=== PATIENT | female | born 1995 ===

== ENCOUNTER 2018-02-08 13:20 | Emergency (ER) | payer MEDICAID, SELFPAY ==
[2018-02-08 14:20] VITALS: BMI 28.5
[2018-02-08 15:20] LABS: SQUAMOUS EPITHIAL < 1 /hpf (0-5); URINE BILIRUBIN NEGATIVE (NEGATIVE); URINE BLOOD NEGATIVE (NEGATIVE); URINE CLARITY CLEAR (Clear); URINE COLOR COLORLESS (YELLOW); URINE GLUCOSE (UA) NEG (Normal); URINE LEUKOCYTE ESTERASE NEG Leu/uL (Negative); URINE PROTEIN NEGATIVE (NEGATIVE); URINE UROBILINOGEN 0.2-1.0 mg/dL (0.2-1.0)
--- NOTE | 2018-02-08 15:41 | OBHP ---
Datetime: 02/08/2018 14:43 IP Adm Impression: Term, intrauterine IP Admit Plan: Observation/Evaluation; Discharge home Admit Comment, IP Provider: 22 yo at 39+ 1 wks by LMP, c/w 15+ wk u/s, p/w noticing blood w/ wiping after urination at 11 am, denies ctxns, LOF and reports movement. Pt receives care w/ [facility]. 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 Extremities - PN: Normal Abdomen - PN: Normal Back - PN: Normal Lungs - PN: Normal Heart - PN: Normal Neurologic - PN: Normal HEENT - PN: Normal General - PN: Normal FHR - Baseline A Provider: 140's Membranes, Provider: Intact Contraction Comments Provider: None Comments, ACOG Physical Exam: Speculum: small thin blod clot in mucus seen against the cervix EGA AdmitDate IP: 39.1 Vital Signs Provider: Reviewed IP Chief Complaint: Vaginal bleeding NICHD Variability Prov Fetus A: Moderate 6-25bpm NICHD Accel Fetus A IP Provider: 15X15 FHR Category Provider Fetus A: Category I NICHD Decel Fetus A IP Provider: None Dilatation, Provider: 1 Effacement, Provider: 50 Station, Provider: -2 Genitourinary Exam: Normal
--- NOTE | 2018-02-08 15:41 | OBDCSUM ---
Datetime: 02/08/2018 15:39 Discharged to, Provider: Home Follow up at, Provider: [facility] Disch Instr Activity: Normal activity Disch Instr Diet: Regular Discharge Instructions, Provider: Routine instructions given Discharge Diagnosis, Provider: Antepartum Bleeding Discharge Time: 02/08/2018 15:39 Follow up in weeks, Provider: , 02/10/2018
[2018-02-08 20:11] VITALS: BP 101/60; PULSE 60; RESP 18; TEMP 97.8; O2SAT 97
== END 2018-02-08 15:40 | disposition home or self-care (01) ==
LOC: H.EROB2 13:20
DX: O26.853 Spotting complicating pregnancy, third trimester (principal); Z3A.39 39 weeks gestation of pregnancy; O47.1 False labor at or after 37 completed weeks of gestation

== ENCOUNTER 2018-02-09 01:50 | Inpatient (IN) | payer MEDICAID, SELFPAY ==
[2018-02-08 14:20] VITALS: BMI 28.5
[2018-02-09] MEDS ORDERED: Oxytocin 30 units/LR 500ML 30 UNITS/500 ML BAG IV ONE (02:44)
[2018-02-09] MEDS ORDERED: Lactated Ringer's 1,000 ML IV SCH (02:45)
[2018-02-09 03:16] LABS: BASO % 0.5 % (0.0-2.0); EOS # 0.1 K/uL (0.0-0.7); EOS % 0.9 % (0.0-4.0); HEMOGLOBIN 11.3 g/dL (12.0-16.0); LYMPH % 26.8 % (20.0-40.0); MEAN CELL VOLUME 84.6 fl (81.0-99.0); MEAN CORPUSCULAR HEMOGLOBIN 27.9 pg (27.0-31.0); MEAN CORPUSCULAR HGB CONC 32.9 g/dL (33.0-37.0); MEAN PLATELET VOLUME 11.5 fl (7.2-11.7); MONO # 0.6 K/uL (0.0-0.8); MONO % 7.9 % (0.0-10.0); NEUT # 4.9 K/uL (1.8-7.0); NEUT % 63.9 % (50.0-75.0); RBC 4.05 Mil/uL (3.80-5.20); WHITE BLOOD COUNT 7.6 K/uL (4.8-10.8)
[2018-02-09] MEDS ORDERED: LIDOCAINE 2% 10ML 20 MG/ML VIAL IJ PRN (03:20)
--- NOTE | 2018-02-09 04:10 | OBHP ---
Datetime: 02/09/2018 02:35 IP Adm Impression: Term, intrauterine IP Admit Plan: Admit to unit; Initiate labor protocol Admit Comment, IP Provider: 22 yo with IUP at 39+2 weeks gestational age by LMP consistent w ith 15 week u/s presented to [facility] with painful contractions q5 min that started at 6 pm, rates pain 9 /10. Denies loss of fluid, vaginal bleeding. Reports good movement. ROS: denies headache, dizziness, chest pain, shortness of breath, nausea, vomiting, diarrhea, pain /burning w/ urination. care: [facility]; Dr. Don. OBhx: 1 prior NVD 2014, full term at 40 weeks PMHx: no medical problems Past Surg hx: none Social hx: denies tobacco, alcohol, illicit drug use Fam hx: noncontributory Meds: PNVs and iron Allergies: NKDA PE: FHR 140s, reactive SVE: 6cm, 100%, -2 Gen: awake, alert CV: RRR Resp: normal effort Abd: gravid Ext: no edema A/P 22 yo at 39+ weeks; in active labor Admit to labor and delivery unit, expectant management Pt seen/examined w/ Dr. Barroso. [email or web address] Extremities - PN: Normal Abdomen - PN: Normal Back - PN: Normal Lungs - PN: Normal Heart - PN: Normal Neurologic - PN: Normal HEENT - PN: Normal General - PN: Normal FHR - Baseline A Provider: 140 Comments, ACOG Physical Exam: SVE: 6cm, 100%, -2 IP Hx Assessment: The History has been Reviewed and is Current EGA AdmitDate IP: 39.2 IP Indication for Induction: Not Applicable IP Chief Complaint: Uterine contractions NICHD Variability Prov Fetus A: Minimal - Undetectable to <5bpm NICHD Accel Fetus A IP Provider: 15X15 FHR Category Provider Fetus A: Category I NICHD Decel Fetus A IP Provider: None Dilatation, Provider: 6 Effacement, Provider: 100 Station, Provider: -2 Genitourinary Exam: Normal
--- NOTE | 2018-02-09 04:13 | OBADHP ---
Datetime: 02/09/2018 02:35 Admit Comment, IP Provider: 22 yo with IUP at 39+2 weeks gestational age by LMP consistent w ith 15 week u/s presented to [facility] with painful contractions q5 min that started at 6 pm, rates pain 9 /10. Denies loss of fluid, vaginal bleeding. Reports good movement. ROS: denies headache, dizziness, chest pain, shortness of breath, nausea, vomiting, diarrhea, pain /burning w/ urination. care: [facility]; Dr. Don. OBhx: 1 prior NVD 2014, full term at 40 weeks PMHx: no medical problems Past Surg hx: none Social hx: denies tobacco, alcohol, illicit drug use Fam hx: noncontributory Meds: PNVs and iron Allergies: NKDA PE: FHR 140s, reactive SVE: 6cm, 100%, -2 Gen: awake, alert CV: RRR Resp: normal effort Abd: gravid Ext: no edema A/P 22 yo at 39+ weeks; in active labor Admit to labor and delivery unit, expectant management Pt seen/examined w/ Dr. Barroso. [email or web address] OB Hospitalist Addendum: Pt seen and examined by me. Agree w/ above. 22 yo at 39+2 wks r eports more frequent and painful ctxns, admitted in labor. NST reactive. GBS negative. (ES) Extremities - PN: Normal Abdomen - PN: Normal Back - PN: Normal Lungs - PN: Normal Heart - PN: Normal Neurologic - PN: Normal HEENT - PN: Normal General - PN: Normal FHR - Baseline A Provider: 140 Comments, ACOG Physical Exam: SVE: 6cm, 100%, -2 IP Hx Assessment: The History has been Reviewed and is Current IP Chief Complaint: Uterine contractions NICHD Variability Prov Fetus A: Minimal - Undetectable to <5bpm NICHD Accel Fetus A IP Provider: 15X15 FHR Category Provider Fetus A: Category I NICHD Decel Fetus A IP Provider: None Dilatation, Provider: 6 Effacement, Provider: 100 Station, Provider: -2 Genitourinary Exam: Normal EGA AdmitDate IP: 39.2 IP Adm Impression: Term, intrauterine IP Admit Plan: Admit to unit; Initiate labor protocol Datetime: 02/08/2018 14:43 Membranes, Provider: Intact Contraction Comments Provider: None Vital Signs Provider: Reviewed
[2018-02-09] MEDS ORDERED: Oxycodone/Acetaminophen 5/325 mg Tab PO PRN ×2 (06:33→10:42)
[2018-02-09] MEDS ORDERED: Benzocaine/Menthol SPRAY TOP PRN (06:33)
--- NOTE | 2018-02-09 06:56 | OBDS ---
DELIVERY PERSONNEL Delivery Doctor: Maya Barroso MD (Annotations: Data stored by [facility] on behalf of user) Battery Loader: Joseph Ayala RN Resident: Jaleel Cavazos MD MATERNAL INFORMATION Delivery Anesthesia: None Medications in Delivery: oxytocin 30 units/500cc LR, 2% Lidocaine Estimated Blood Loss (ml): 200 Placenta Cultured: No Maternal Complications: None Provider Comments: Pt progressed to complete and pushed to deliver a viable male through nathaniel r fluid at 06:23 am. Apgars 9 and 9. Wt 7#6, 3355gms. Infant placed on mother's abdomen. Mouth an d nares bulb-suctioned. Cord doubly clamped and FOB cut the cord. Placenta delivered spontaneously intact w/ a 3vc at 06:26 am. Small second degree tear repaired w/ 2-0 rapide and 3-[address] Pt and baby tolerated procedure well. EBL 200 mL LABOR SUMMARY EDC: 02/14/2018 00:00 No. Babies in Womb: 1 Attempted: No Labor Anesthesia: None LABOR INFORMATION Reason for Induction: Not Applicable Onset of Labor: 02/09/2018 02:30 Complete Dilatation: 02/09/2018 06:15 Oxytocin: N/A Group B Beta Strep: Negative Steroids Given: None Reason Steroids Not Administered: Not Applicable MEMBRANES Membranes Rupture Method: Spontaneous Rupture of Membranes: 02/09/2018 06:15 Length of Rupture (hrs): 0.13 Amniotic Fluid Color: Light Meconium Amniotic Fluid Amount: Small Amniotic Fluid Odor: Normal STAGES OF LABOR Stage 1 hrs: 3 Stage 1 min: 45 Stage 2 hrs: 0 Stage 2 min: 8 Stage 3 hrs: 0 Stage 3 min: 3 Total Time in Labor hrs: 3 Total Time in Labor min: 56 VAGINAL DELIVERY Episiotomy: None Laceration Extension: Second Degree Laceration Type: Perineal Laceration Repair: Yes Initial Vag Sponge Count: 5 Final Vag Sponge Count: 5 Initial Vag Sharps Count: 2 Final Vag Sharps Count: 2 Sponge Count Correct: Yes Sharps Count Correct: Yes BABY A INFORMATION Infant Delivery Date/Time: 02/09/2018 06:23 Method of Delivery: Vaginal Born in Route : No : N/A Forceps: N/A Vacuum Extraction: N/A Shoulder Dystocia : No SHOULDER DYSTOCIA BABY A Delivery Date/Time: 02/09/2018 06:23 PRESENTATION/POSITION BABY A Presentation: Cephalic Cephalic Presentation: Vertex Breech Presentation: N/A PLACENTA INFORMATION BABY A Placenta Delivery Time : 02/09/2018 06:26 Placenta Method of Delivery: Spontaneous Placenta Status: Delivered SCORES BABY A Heart Rate 1 min: >100 bpm Resp Effort 1 min: Good Cry Reflex Irritability 1 min: Cough or Sneeze or Pulls Away Muscle Tone 1 min: Active Motion Color 1 min: Body [place], Extremities Blue SCORE 1 MIN: 9 Heart Rate 5 min: >100 bpm Resp Effort 5 min: Good Cry Reflex Irritability 5 min: Cough or Sneeze or Pulls Away Muscle Tone 5 min: Active Motion Color 5 min: Body [place], Extremities Blue SCORE 5 MIN: 9 INFANT INFORMATION BABY A Gestational Age at Delivery: 39.2 Gestational Status: Term Infant Outcome : Liveborn Infant Condition : Stable Infant Sex: Male IDENTIFICATION/MEDS BABY A ID Band Location: Right Leg; Left Leg WEIGHT/LENGTH BABY A Birthweight (gms): 3355 Weight (lb): 7 Weight (oz): 6 CORD INFORMATION BABY A No. Cord Vessels: 3 Nuchal Cord : N/A Cord Blood Taken: Yes Suction: Mouth
[2018-02-09] MEDS ORDERED: Multivitamin With Minerals Tab PO SCH (09:00)
[2018-02-10] MEDS: Benzocaine/Menthol SPRAY TOP PRN (00:25)
[2018-02-10 06:58] LABS: HEMOGLOBIN 9.5 g/dL (12.0-16.0); MEAN CELL VOLUME 84.6 fl (81.0-99.0); MEAN CORPUSCULAR HEMOGLOBIN 27.3 pg (27.0-31.0); MEAN CORPUSCULAR HGB CONC 32.3 g/dL (33.0-37.0); RBC 3.49 Mil/uL (3.80-5.20); RED CELL DISTRIBUTION WIDTH 15.9 % (11.5-14.5); WHITE BLOOD COUNT 7.5 K/uL (4.8-10.8)
[2018-02-10] MEDS: Multivitamin With Minerals Tab PO SCH (09:34)
--- NOTE | 2018-02-10 13:08 | OBPPN ---
Datetime: 02/10/2018 07:10 PP Pain Prov: Within normal limits PP Nausea Prov: Denies PP Flatus Prov: Yes PP BM Prov: No PP Breasts Prov: Normal PP Heart Prov: Normal PP Lungs Prov: Normal PP Abdomen/Uterus Prov: Normal PP Lochia Prov: Normal PP Extremities Prov: Normal PP Progress Prov: Normal PP Impression Prov: Normal progression PP Progress Note Prov: 22 yo s/p NVD on 02/09/18 at 0623, PPD 1. Pt was seen and examined at [facility] this am, no acute events overnight. Pain is appropriately controlled. She is able to ambulate, has walked to the bathroom and has voided. Has passed gas, no BM. Lochia less than menses. Breast an d bottle feeding . Tolerating PO intake. Denies chest pain, dyspnea, nausea, vomiting, and ca lf pain. Gen: awake, alert, no acute distress Resp: clear to auscultation bilaterally, normal effort CV: RRR, S1S2 Abd: + bs, soft, mildly and appropriately tender, firm fundus at umbilicus Ext: no edema, no calf tenderness Neuro/psych: AAOx3, no gross deficits, preserved mood and affect A/P 22 yo s/p NVD on 02/09/18 at 0623, PPD 1. Encourage and ambulation. Pain control. Continue current management. -[email or web address]
[2018-02-10 14:36] VITALS: PULSE 62; RESP 18
[2018-02-11] MEDS: Multivitamin With Minerals Tab PO SCH (08:50)
[2018-02-11] MEDS: Benzocaine/Menthol SPRAY TOP PRN (08:51)
[2018-02-11 17:20] VITALS: BP 93/56; TEMP 98
== END 2018-02-11 12:50 | disposition home or self-care (01) | DRG 373 ==
LOC: H.EROB2 01:50 → H.L&D 02:34 → H.OB/GYN 09:54
PROVIDERS: ADMIT Obstetrics & Gynecology; ATTEND Obstetrics & Gynecology
PROC: 10E0XZZ Delivery of Products of Conception, External Approach (ICD-10-PCS; principal; 2018-02-09)
PROC: 0KQM0ZZ Repair Perineum Muscle, Open Approach (ICD-10-PCS; 2018-02-09)
DX: O70.1 Second degree perineal laceration during delivery (principal); Z37.0 Single live birth; Z3A.39 39 weeks gestation of pregnancy

== ENCOUNTER 2018-06-06 16:09 | Inpatient (IN) | payer MEDICAID, SELFPAY ==
[2018-06-06 16:09] VITALS: BMI 28.5
[2018-06-06] MEDS ORDERED: Sodium Chloride 0.9% 1,000 ML IV STA (17:01)
[2018-06-06] MEDS ORDERED: Morphine 4 MG/ML VIAL ONE (17:18)
--- NOTE | 2018-06-06 17:22 | ED PDOC ---
HPI: Abdomen Time Seen by Provider: 06/06/18 16:32 Chief Complaint (Nursing): Abdominal Pain Chief Complaint (Provider): Abdominal Pain History Per: Patient History/Exam Limitations: no limitations Onset/Duration Of Symptoms: Days (x14) Current Symptoms Are (Timing): Still Present Location Of Pain/Discomfort: Diffuse Additional Complaint(s): 23 y/o female with no significant PMHx presents to the ED complaining of abdominal pain, onset two weeks ago. Patient reports of initially being seen at [facility] and diagnosed with gallstones then discharged home. After being seen at [facility], pain returned and patient went to [facility] and was discharged after feeling better. Patient reports today at 6 AM, pain began again. Patient reports of taking naprosyn, Tylenol and Pepcid with no relief. Patient states pain is constant and associated with nausea, loss of appetite and chills. Patient reports pain radiated from the right upper quadrant to the entire abdomen and back. Patent stats pain worsens with movement. Denies vomiting, diarrhea, incontinence and fever. PMD: No Provider Past Medical History Reviewed: Historical Data, Nursing Documentation, Vital Signs Vital Signs: Last Vital Signs Temp 98.9 F 06/06/18 16:28 Pulse 81 06/06/18 16:28 Resp 18 06/06/18 16:28 BP 114/61 06/06/18 16:28 Pulse Ox 98 06/06/18 18:59 - Medical History PMH: No Chronic Diseases Denies: Depression, Diabetes, HTN - Surgical History Surgical History: No Surg Hx - Family History Family History: States: No Known Family Hx - Social History Current smoker - smoking cessation education provided: No Alcohol: None Drugs: Denies - Immunization History Hx Tetanus Toxoid Vaccination: No Hx Influenza Vaccination: No Hx Pneumococcal Vaccination: No - Home Medications Home Medications: Ambulatory Orders Medication Instructions Recorded Ibuprofen [Motrin Tab] 600 mg PO Q6 PRN #20 tab 02/11/18 Naproxen [Naprosyn] 1 tab PO BID PRN #20 tab 05/23/18 Famotidine [Pepcid] 1 tab PO DAILY 06/06/18 - Allergies Allergies/Adverse Reactions: Allergies Allergy/AdvReac Type Severity Reaction Status Date / Time No Known Allergies Allergy Verified 06/06/18 16:27 Review of Systems ROS Statement: Except As Marked, All Systems Reviewed And Found Negative (as per HPI) Constitutional: Positive for: Chills. Negative for: Fever Gastrointestinal: Positive for: Nausea, Abdominal Pain, Other (loss of appetite) . Negative for: Vomiting, Diarrhea Genitourinary Female: Negative for: Incontinence Physical Exam - Reviewed Nursing Documentation Reviewed: Yes Vital Signs Reviewed: Yes - Physical Exam Appears: Positive for: Uncomfortable, In Acute Distress (Painful) Head Exam: Positive for: ATRAUMATIC, NORMOCEPHALIC Skin: Positive for: Warm, Dry Eye Exam: Positive for: EOMI, PERRL ENT: Negative for: Pharyngeal Erythema, Tonsillar Exudate Neck: Positive for: Painless ROM, Supple Cardiovascular/Chest: Positive for: Regular Rate, Rhythm, Chest Non Tender. Negative for: Murmur Respiratory: Positive for: Normal Breath Sounds. Negative for: Wheezing Gastrointestinal/Abdominal: Positive for: Soft, Tenderness (Diffuse tenderness to palpation. (+) Childs's Point Tenderness. ). Negative for: Distended, Guarding, Rebound Back: Positive for: Normal Inspection. Negative for: Decreased ROM Extremity: Positive for: Normal ROM. Negative for: Deformity Lymphatic: Negative for: Adenopathy Neurologic/Psych: Positive for: Alert. Negative for: Motor/Sensory Deficits - Laboratory Results Result Diagrams: 06/06/18 17:15 06/06/18 17:15 - ECG O2 Sat by Pulse Oximetry: 98 (RA) Pulse Ox Interpretation: Normal Medical Decision Making Medical Decision Making: Time: 1714 Impression: Abdominal pain with a history of gallstones Rule out cholecystitis, gallstones and pancreatitis Plan: -- CMP -- Lact Acid, Plasma -- LDH -- Lipase -- ED Urine -- ED Urine Dipstick -- CBC with differentials -- PTT -- Prothrombin Time -- Dextrose 5%-0.9% 1000 ml IV 100 mls/hr -- Morphine 4 mg IVP -- Sodium Chloride IV 1000 mls/hr -- Zofran Inj 8 mg IV -- Urine Culture -- IV Insertion -- Urinalysis -- Gallbladder & Hepatic US Time: 1831 US RESULTS FINDINGS: The gallbladder is physiologically distended. A large volume of echogenic material is seen within the gallbladder without shadowing corresponding to sludge. The gallbladder wall measures 2.8 mm. Sonographic Childs's sign is positive. The common bile duct measures 7.6 mm The liver is negative for focal abnormality no dilated bile ducts are seen. The pancreas shows heterogenous echogenicity without focal abnormality. The pancreatic tail is not visible. The RIGHT kidney is negative for cortical masses or stones. There is mild caliectasis. . The RIGHT kidney measures 11 cm x 4.7 cm x 5.4 cm IMPRESSION: 1. There is a large collection of sludge within the gallbladder without stones. 2. Otherwise negative examination of the RIGHT upper quadrant. Thank you for allowing us to participate in the care of your patient. Dictated and Authenticated by: Vincent Waters MD 06/06/2018 6:32 PM Eastern Time ([place] & [place]) Labs demonstrate deranged LFTs, includeing elevated bili, ldh, ast/alt, alkphos and lipase. OBDULIA Locke Hospitalist for admission DW Dr Zendejas Surgery resident for Surgical consult w Dr Tereso Green for GI consult. Will come see pt tonight. Advises IV antibiotics and IVF. Scribe Attestation: Documented by Bhupinder Parrish acting as a scribe for Jennifer Kenney MD. Provider Scribe Attestation: All medical record entries made by the Scribe were at my direction and personally dictated by me. I have reviewed the chart and agree that the record accurately reflects my personal performance of the history, physical exam, medical decision making, and the department course for this patient. I have also personally directed, reviewed, and agree with the discharge instructions and disposition. Disposition - Clinical Impression Clinical Impression: Gallstone pancreatitis - Disposition Disposition Time: 19:00 Condition: FAIR - Pt Status Changed To: Hospital Disposition Of: Inpatient - Admit Certification Admit to Inpatient:: After my assessment, the patient will require hospitalization for at least two midnights. This is because of the severity of symptoms shown, intensity of services needed, and/or the medical risk in this patient being treated as an outpatient. - POA Present On Arrival: None
[2018-06-06 17:25] LABS: INR 1.1; PROTHROMBIN TIME 12.5 Seconds (9.8-13.1)
[2018-06-06 17:26] LABS: BASO % 0.2 % (0.0-2.0); EOS # 0.1 K/uL (0.0-0.7); EOS % 0.6 % (0.0-4.0); LYMPH # 0.9 K/uL (1.0-4.3); LYMPH % 9.4 % (20.0-40.0); MEAN CORPUSCULAR HEMOGLOBIN 29.2 pg (27.0-31.0); MEAN CORPUSCULAR HGB CONC 32.8 g/dL (33.0-37.0); MEAN PLATELET VOLUME 9.9 fl (7.2-11.7); MONO # 0.7 K/uL (0.0-0.8); MONO % 7.7 % (0.0-10.0); NEUT # 7.9 K/uL (1.8-7.0); NEUT % 82.1 % (50.0-75.0); PLATELET COUNT 188 K/uL (130-400); RBC 4.44 Mil/uL (3.80-5.20); RED CELL DISTRIBUTION WIDTH 14.8 % (11.5-14.5); WHITE BLOOD COUNT 9.6 K/uL (4.8-10.8)
[2018-06-06 17:27] LABS: PARTIAL THROMBOPLASTIN TIME 29.4 Seconds (25.6-37.1)
[2018-06-06 18:03] LABS: ALB/GLOB RATIO 1.2 (1.0-2.1); ALBUMIN 3.9 g/dL (3.5-5.0); ALT/SGPT 506 U/L (9-52); AST/SGOT 328 U/L (14-36); BLOOD UREA NITROGEN 10 mg/dl (7-17); CALCIUM 8.8 mg/dL (8.4-10.2); GFR NON-AFRICAN AMERICAN > 60
[2018-06-06 18:03] LABS: SQUAMOUS EPITHIAL < 1 /hpf (0-5); URINE AMORPHOUS SEDIMENT RARE /ul (<OCC); URINE BACTERIA OCC (<OCC); URINE BILIRUBIN NEGATIVE (NEGATIVE); URINE BLOOD NEGATIVE (NEGATIVE); URINE CLARITY SLIGHTY-CLOUDY (Clear); URINE COLOR AMBER (YELLOW); URINE GLUCOSE (UA) NEG (Normal); URINE LEUKOCYTE ESTERASE SMALL Leu/uL (Negative); URINE PROTEIN NEGATIVE (NEGATIVE); URINE UROBILINOGEN 0.2-1.0 mg/dL (0.2-1.0)
[2018-06-06 18:22] LABS: BANDS 2 % (0-2); LYMPHOCYTE 7 % (20-50); MONOCYTE 4 % (0-10); NEUTROPHIL 87 % (42-75); PLATELET ESTIMATE NORMAL (NORMAL); TOTAL CELLS COUNTED 100
[2018-06-06 18:23] LABS: ANISOCYTOSIS SLIGHT; OVALOCYTES SLIGHT; POIKILOCYTOSIS SLIGHT; TEARDROP CELLS SLIGHT
[2018-06-06 18:43] LABS: LIPASE 22751 U/L (23-300)
[2018-06-06] MEDS ORDERED: Lactated Ringer's 1,000 ML IV STA (18:44)
[2018-06-06] MEDS ORDERED: Piperacillin/Tazobact 3.375 GM in Sodium Chloride 0.9% 100 ML IVPB STA (18:45)
[2018-06-06] MEDS ORDERED: Piperacillin/Tazobact 3.375 gm Inj IVPB ONE (18:55)
--- NOTE | 2018-06-06 19:25 | CP.PCM.HP ---
History of Present Illness - History of Present Illness History of Present Illness: CC: "abdominal pain" HPI: 23 YO female with PMHx of cholelithiasis, presents to [facility] ED for abdominal pain. Pt states that the pain started suddenly today, located in the epigastric and RUQ with radiation of the pain to the back. Pain is severe, worse with motion, and associated with nausea but no episodes of emesis. Of note , pt states that she had the pain for the first time about 2 week ago, last time pt went to [facility] and was told she had gallstones and sent home. Denies chest pain, dyspnea, palpitations, v/d/c, dysuria, hematuria, and fevers. PMD: none PMHx: cholelithiasis OBHx: Surgx: denies SHx: denies ETOH, smoking and illicit drug use FHx: noncontributory Allergies: NKDA Med: none ED course: Vitals: T 98.9 HR 81 BP 114/61 RR 18 O2 98% RA Blood work: sig for lipase 10099, Tbil 5.6, AST/ALT 328/506, alk phos 187, LDH 814, lactic acid 0.6 Meds: 1x LR 1L, morphine 4mg, NS 1L x1, Zofan and zosyn Imaging: abdominal u/s and CXR pending Present on Admission - Present on Admission Any Indicators Present on Admission: No Review of Systems - Constitutional Constitutional: absent: Fever - Cardiovascular Cardiovascular: absent: Chest Pain, Dyspnea, Palpitations - Respiratory Respiratory: absent: Cough, Dyspnea - Gastrointestinal Gastrointestinal: Abdominal Pain, Nausea. absent: Change in Stool Character, Constipation, Diarrhea - Genitourinary Genitourinary: absent: Difficulty Urinating, Dysuria, Hematuria - Musculoskeletal Musculoskeletal: Back Pain Past Patient History - Past Social History Smoking Status: Never Smoked Alcohol: None Drugs: Denies Home Situation {Lives}: With Family - CARDIAC Hx Hypertension: No - PSYCHIATRIC Hx Depression: No - SURGICAL HISTORY Hx Surgeries: No - ANESTHESIA Hx Anesthesia: No Meds Allergies/Adverse Reactions: Allergies Allergy/AdvReac Type Severity Reaction Status Date / Time No Known Allergies Allergy Verified 06/06/18 16:27 Physical Exam - Constitutional Appears: Other (looks uncomfortable ) - Eye Exam Eye Exam: EOMI, Scleral icterus (mild) - ENT Exam ENT Exam: Mucous Membranes Moist - Respiratory Exam Respiratory Exam: Clear to Auscultation Bilateral, NORMAL BREATHING PATTERN. absent: Wheezes - Cardiovascular Exam Cardiovascular Exam: REGULAR RHYTHM, +S1, +S2. absent: Systolic Murmur - GI/Abdominal Exam GI & Abdominal Exam: Distended (obese ), Normal Bowel Sounds, Soft, Tenderness ( to palpation of the epigastria, +Childs's sig, no everardo or concepcion-blackwell sign ). absent: Guarding, Rebound - Extremities Exam Extremities exam: Positive for: normal inspection. Negative for: calf tenderness, pedal edema - Back Exam Back exam: NORMAL INSPECTION - Neurological Exam Neurological exam: Alert Results - Vital Signs Recent Vital Signs: Last Vital Signs Temp 98.9 F 06/06/18 16:28 Pulse 81 06/06/18 16:28 Resp 18 06/06/18 16:28 BP 114/61 06/06/18 16:28 Pulse Ox 98 06/06/18 18:59 - Labs Result Diagrams: 06/06/18 17:15 06/06/18 17:15 Labs: Laboratory Results - last 24 hr 06/06/18 06/06/18 06/06/18 17:15 17:15 17:15 WBC 9.6 RBC 4.44 Hgb 13.0 D Hct 39.5 MCV 89.0 D MCH 29.2 MCHC 32.8 L RDW 14.8 H Plt Count 188 MPV 9.9 Neut % (Auto) 82.1 H Lymph % (Auto) 9.4 L [place] % (Auto) 7.7 Eos % (Auto) 0.6 Baso % (Auto) 0.2 Neut # (Auto) 7.9 H Lymph # (Auto) 0.9 L [place] # (Auto) 0.7 Eos # (Auto) 0.1 Baso # (Auto) 0.0 Neutrophils % (Manual) 87 H Band Neutrophils % 2 Lymphocytes % (Manual) 7 L Monocytes % (Manual) 4 Platelet Estimate Normal Poikilocytosis (manual Slight Anisocytosis (manual) Slight Tear Drop Cells Slight Ovalocytes Slight PT 12.5 INR 1.1 APTT 29.4 Sodium 138 Potassium 3.7 Chloride 109 H Carbon Dioxide 19 L Anion Gap 14 BUN 10 Creatinine 0.5 L Est GFR ( Amer) > 60 Est GFR (Non-Af Amer) > 60 Random Glucose 94 Lactic Acid Calcium 8.8 Total Bilirubin 5.6 H AST 328 H D ALT 506 H Alkaline Phosphatase 187 H D Lactate Dehydrogenase 814 H Total Protein 7.1 Albumin 3.9 Globulin 3.2 Albumin/Globulin Ratio 1.2 Lipase 98992 H Urine Color Urine Clarity Urine pH Ur Specific Tyler Urine Protein Urine Glucose (UA) Urine Ketones Urine Blood Urine Nitrate Urine Bilirubin Urine Urobilinogen Ur Leukocyte Esterase Urine RBC (Auto) Urine Microscopic WBC Ur Squamous Epith Cells Amorphous Sediment Urine Bacteria 06/06/18 06/06/18 17:15 17:40 WBC RBC Hgb Hct MCV MCH MCHC RDW Plt Count MPV Neut % (Auto) Lymph % (Auto) [place] % (Auto) Eos % (Auto) Baso % (Auto) Neut # (Auto) Lymph # (Auto) [place] # (Auto) Eos # (Auto) Baso # (Auto) Neutrophils % (Manual) Band Neutrophils % Lymphocytes % (Manual) Monocytes % (Manual) Platelet Estimate Poikilocytosis (manual Anisocytosis (manual) Tear Drop Cells Ovalocytes PT INR APTT Sodium Potassium Chloride Carbon Dioxide Anion Gap BUN Creatinine Est GFR ( Amer) Est GFR (Non-Af Amer) Random Glucose Lactic Acid 0.6 L Calcium Total Bilirubin AST ALT Alkaline Phosphatase Lactate Dehydrogenase Total Protein Albumin Globulin Albumin/Globulin Ratio Lipase Urine Color Noa Urine Clarity Slighty-cloudy Urine pH 6.0 Ur Specific Tyler 1.011 Urine Protein Negative Urine Glucose (UA) Neg Urine Ketones Negative Urine Blood Negative Urine Nitrate Negative Urine Bilirubin Negative Urine Urobilinogen 0.2-1.0 Ur Leukocyte Esterase Small Urine RBC (Auto) 1 Urine Microscopic WBC 8 H Ur Squamous Epith Cells < 1 Amorphous Sediment Rare H Urine Bacteria Occ H - Imaging and Cardiology US - abdomen Additional comment: FINDINGS: The gallbladder is physiologically distended. A large volume of echogenic material is seen within the gallbladder without shadowing corresponding to sludge. The gallbladder wall measures 2.8 mm. Sonographic Childs's sign is positive. The common bile duct measures 7.6 mm The liver is negative for focal abnormality no dilated bile ducts are seen. The pancreas shows heterogenous echogenicity without focal abnormality. The pancreatic tail is not visible. The RIGHT kidney is negative for cortical masses or stones. There is mild caliectasis. . The RIGHT kidney measures 11 cm x 4.7 cm x 5.4 cm IMPRESSION: 1. There is a large collection of sludge within the gallbladder without stones. 2. Otherwise negative examination of the RIGHT upper quadrant. Assessment & Plan - Assessment and Plan (Free Text) Assessment: Assessment/Plan: 23 YO female with PMHx of cholelithiasis is admitted for gallstone pancreatitis. Gallstone pancreatitis, cholecystitis -likely 2/2 to choledocolithiais vs biliary sludge -transaminitis likely 2/2 to above -lipase 27654, T. christopher 5.6, AST/ALT 328/506, alk phos 187, LDH 814 -ultrasound of the gallbladder pending -GI and surgery consulted; pending recs -s/p 2L IVF, cont IVF hydration -cont Zosyn -Morphine for pain and zofran for nausea, start protonix, keep NPO -Winchester's criteria on admission is 2pts. Severe pancreatitis is unlikely, 1% predicted mortality Asymptomatic UTI -UA sig for small leukes -Ucx pending -on abx Dvt Prohyx -Lovenox SC
[2018-06-06] MEDS ORDERED: Sodium Chloride 0.9% 1,000 ML IV SCH (19:45)
--- NOTE | 2018-06-06 19:59 | CP.PCM.CON ---
History of Present Illness - History of Present Illness History of Present Illness: General Surgery Consult Re: Gallstone pancreatitis HPI: 23F presented to ED for epigastric and RUQ abd pain. Began today with pain radiating to the back. + nausea, no emesis. Pt had similar pain about 1 week ago and went to [facility] and was told she had gallstones and sent home. Denies F/C, headache, chest pain, SOB, diarrhea, urinary symptoms. Has 3 month old and is breast feeding. PMH: Denies PSH: Denies FH: non contributory SH: No tobacco, EtOH or drugs use All: NKDA Meds: vitamin Review of Systems - Review of Systems All systems: reviewed and no additional remarkable complaints except (as per HPI ) Past Patient History - Past Social History Smoking Status: Never Smoked Alcohol: None Drugs: Denies Home Situation {Lives}: With Family - CARDIAC Hx Hypertension: No - PSYCHIATRIC Hx Depression: No - SURGICAL HISTORY Hx Surgeries: No - ANESTHESIA Hx Anesthesia: No Meds Allergies/Adverse Reactions: Allergies Allergy/AdvReac Type Severity Reaction Status Date / Time No Known Allergies Allergy Verified 06/06/18 16:27 - Medications Medications: Current Medications Enoxaparin Sodium (Lovenox) 40 mg SC DAILY [facility] PRN Reason: Protocol Piperacillin Sod/Tazobactam (Sod 3.375 gm/ Sodium Chloride) 100 mls @ 100 mls/ hr IVPB Q6 [facility] PRN Reason: Protocol Sodium Chloride (Sodium Chloride 0.9%) 1,000 mls @ 250 mls/hr IV .Q4H [facility] Morphine Sulfate (Morphine) 2 mg IVP Q4 PRN PRN Reason: Pain, moderate (4-7) Ondansetron HCl (Zofran Inj) 4 mg IVP Q6 PRN PRN Reason: Nausea/Vomiting Pantoprazole Sodium (Protonix Inj) 40 mg IVP DAILY [facility] Physical Exam - Constitutional Appears: Non-toxic, No Acute Distress - Head Exam Head Exam: ATRAUMATIC, NORMOCEPHALIC - Eye Exam Eye Exam: EOMI, Scleral icterus - ENT Exam ENT Exam: Mucous Membranes Dry Additional comments: trachea midline - Respiratory Exam Respiratory Exam: NORMAL BREATHING PATTERN. absent: Respiratory Distress - Cardiovascular Exam Cardiovascular Exam: RRR, +S1, +S2 - GI/Abdominal Exam GI & Abdominal Exam: Soft, Tenderness (in epigastrum and RUQ). absent: Distended, Firm, Guarding, Hernia, Rebound, Rigid - Rectal Exam Rectal Exam: Deferred - Extremities Exam Extremities exam: Positive for: normal capillary refill, pedal pulses present. Negative for: calf tenderness, pedal edema - Back Exam Back exam: absent: CVA tenderness (L), CVA tenderness (R) - Neurological Exam Neurological exam: Alert, Oriented x3 - Skin Skin Exam: Dry, Warm Results - Vital Signs Recent Vital Signs: Last Vital Signs Temp 98.9 F 06/06/18 16:28 Pulse 81 06/06/18 16:28 Resp 18 06/06/18 16:28 BP 114/61 06/06/18 16:28 Pulse Ox 98 06/06/18 19:27 - Labs Result Diagrams: 06/06/18 17:15 06/06/18 17:15 Labs: Laboratory Results - last 24 hr 06/06/18 06/06/18 06/06/18 17:15 17:15 17:15 WBC 9.6 RBC 4.44 Hgb 13.0 D Hct 39.5 MCV 89.0 D MCH 29.2 MCHC 32.8 L RDW 14.8 H Plt Count 188 MPV 9.9 Neut % (Auto) 82.1 H Lymph % (Auto) 9.4 L [place] % (Auto) 7.7 Eos % (Auto) 0.6 Baso % (Auto) 0.2 Neut # (Auto) 7.9 H Lymph # (Auto) 0.9 L [place] # (Auto) 0.7 Eos # (Auto) 0.1 Baso # (Auto) 0.0 Neutrophils % (Manual) 87 H Band Neutrophils % 2 Lymphocytes % (Manual) 7 L Monocytes % (Manual) 4 Platelet Estimate Normal Poikilocytosis (manual Slight Anisocytosis (manual) Slight Tear Drop Cells Slight Ovalocytes Slight PT 12.5 INR 1.1 APTT 29.4 Sodium 138 Potassium 3.7 Chloride 109 H Carbon Dioxide 19 L Anion Gap 14 BUN 10 Creatinine 0.5 L Est GFR ( Amer) > 60 Est GFR (Non-Af Amer) > 60 Random Glucose 94 Lactic Acid Calcium 8.8 Total Bilirubin 5.6 H AST 328 H D ALT 506 H Alkaline Phosphatase 187 H D Lactate Dehydrogenase 814 H Total Protein 7.1 Albumin 3.9 Globulin 3.2 Albumin/Globulin Ratio 1.2 Lipase 76272 H Urine Color Urine Clarity Urine pH Ur Specific [place] Urine Protein Urine Glucose (UA) Urine Ketones Urine Blood Urine Nitrate Urine Bilirubin Urine Urobilinogen Ur Leukocyte Esterase Urine RBC (Auto) Urine Microscopic WBC Ur Squamous Epith Cells Amorphous Sediment Urine Bacteria 06/06/18 06/06/18 17:15 17:40 WBC RBC Hgb Hct MCV MCH MCHC RDW Plt Count MPV Neut % (Auto) Lymph % (Auto) [place] % (Auto) Eos % (Auto) Baso % (Auto) Neut # (Auto) Lymph # (Auto) [place] # (Auto) Eos # (Auto) Baso # (Auto) Neutrophils % (Manual) Band Neutrophils % Lymphocytes % (Manual) Monocytes % (Manual) Platelet Estimate Poikilocytosis (manual Anisocytosis (manual) Tear Drop Cells Ovalocytes PT INR APTT Sodium Potassium Chloride Carbon Dioxide Anion Gap BUN Creatinine Est GFR ( Amer) Est GFR (Non-Af Amer) Random Glucose Lactic Acid 0.6 L Calcium Total Bilirubin AST ALT Alkaline Phosphatase Lactate Dehydrogenase Total Protein Albumin Globulin Albumin/Globulin Ratio Lipase Urine Color Noa Urine Clarity Slighty-cloudy Urine pH 6.0 Ur Specific [place] 1.011 Urine Protein Negative Urine Glucose (UA) Neg Urine Ketones Negative Urine Blood Negative Urine Nitrate Negative Urine Bilirubin Negative Urine Urobilinogen 0.2-1.0 Ur Leukocyte Esterase Small Urine RBC (Auto) 1 Urine Microscopic WBC 8 H Ur Squamous Epith Cells < 1 Amorphous Sediment Rare H Urine Bacteria Occ H - Imaging and Cardiology US - abdomen Status: Image reviewed by me, Report reviewed by me Assessment & Plan - Assessment and Plan (Free Text) Assessment: 23F with pancreatitis likely 2/2 gallstones Plan: Rec GI consult, F/U GI Recs: MRCP vs ERCP? High rate IVF NPO Serial abdominal exams Planning for Lap Alda during this hospital stay once pain resolves. Analgesia PRN Zofran PRN Strict I&Os D/W Dr. Tereso Zendejas PGY4
[2018-06-06] MEDS: Sodium Chloride 0.9% 1,000 ML IV SCH (20:25)
[2018-06-06] MEDS: Piperacillin/Tazobact 3.375 GM in Sodium Chloride 0.9% 100 ML IVPB SCH (22:24)
[2018-06-07] MEDS: Sodium Chloride 0.9% 1,000 ML IV SCH ×5 (01:42→16:52)
[2018-06-07] MEDS: Piperacillin/Tazobact 3.375 GM in Sodium Chloride 0.9% 100 ML IVPB SCH ×4 (03:10→21:21)
[2018-06-07 06:19] LABS: BASO % 0.2 % (0.0-2.0); EOS # 0.2 K/uL (0.0-0.7); EOS % 2.4 % (0.0-4.0); HEMOGLOBIN 11.2 g/dL (12.0-16.0); LYMPH # 1.2 K/uL (1.0-4.3); LYMPH % 18.6 % (20.0-40.0); MEAN CELL VOLUME 88.9 fl (81.0-99.0); MEAN CORPUSCULAR HEMOGLOBIN 30.1 pg (27.0-31.0); MEAN CORPUSCULAR HGB CONC 33.8 g/dL (33.0-37.0); MEAN PLATELET VOLUME 9.9 fl (7.2-11.7); MONO # 0.7 K/uL (0.0-0.8); MONO % 9.7 % (0.0-10.0); NEUT # 4.6 K/uL (1.8-7.0); NEUT % 69.1 % (50.0-75.0); RBC 3.73 Mil/uL (3.80-5.20); RED CELL DISTRIBUTION WIDTH 14.9 % (11.5-14.5); WHITE BLOOD COUNT 6.7 K/uL (4.8-10.8)
[2018-06-07 06:53] LABS: ALB/GLOB RATIO 1.1 (1.0-2.1); ALBUMIN 2.9 g/dL (3.5-5.0); ALT/SGPT 312 U/L (9-52); AST/SGOT 156 U/L (14-36); BLOOD UREA NITROGEN 7 mg/dl (7-17); GFR NON-AFRICAN AMERICAN > 60
--- NOTE | 2018-06-07 08:37 | CP.PCM.PN ---
<Sultan Mike - Last Filed: 06/07/18 13:07> Subjective - Date & Time of Evaluation Date of Evaluation: 06/07/18 Time of Evaluation: 08:30 - Subjective Subjective: Patient seen and examined this morning. Pt reports abdominal pain, nausea and vomiting have resolved. Denies fever, chills, chest pain or dyspnea. Has been on NPO. No other complaints. Objective - Vital Signs/Intake and Output Vital Signs (last 24 hours): Temp Pulse Resp BP Pulse Ox 98.1 F 76 19 89/51 L 97 06/07/18 07:36 06/07/18 07:36 06/07/18 07:36 06/07/18 07:36 06/07/18 07:36 - Medications Medications: Current Medications Enoxaparin Sodium (Lovenox) 40 mg SC DAILY [facility] PRN Reason: Protocol Piperacillin Sod/Tazobactam (Sod 3.375 gm/ Sodium Chloride) 100 mls @ 100 mls/ hr IVPB Q6 [facility]IO PRN Reason: Protocol Last Admin: 06/07/18 03:10 Dose: 100 mls/hr Sodium Chloride (Sodium Chloride 0.9%) 1,000 mls @ 250 mls/hr IV .Q4H [facility] Last Admin: 06/07/18 03:11 Dose: 250 mls/hr Morphine Sulfate (Morphine) 2 mg IVP Q4 PRN PRN Reason: Pain, moderate (4-7) Last Admin: 06/06/18 20:31 Dose: 2 mg Ondansetron HCl (Zofran Inj) 4 mg IVP Q6 PRN PRN Reason: Nausea/Vomiting Last Admin: 06/06/18 20:30 Dose: 4 mg Pantoprazole Sodium (Protonix Inj) 40 mg IVP DAILY [facility] - Labs Labs: 06/07/18 05:45 06/07/18 05:45 PT 12.5 Seconds (9.8-13.1) 06/06/18 17:15 INR 1.1 06/06/18 17:15 APTT 29.4 Seconds (25.6-37.1) 06/06/18 17:15 - Constitutional Appears: Non-toxic, No Acute Distress - Head Exam Head Exam: NORMAL INSPECTION, NORMOCEPHALIC - Eye Exam Eye Exam: Normal appearance - ENT Exam ENT Exam: Mucous Membranes Moist - Respiratory Exam Respiratory Exam: Clear to Ausculation Bilateral, NORMAL BREATHING PATTERN. absent: Rhonchi, Wheezes - Cardiovascular Exam Cardiovascular Exam: REGULAR RHYTHM, RRR, +S1, +S2 - GI/Abdominal Exam GI & Abdominal Exam: Soft, Normal Bowel Sounds. absent: Guarding, Rigid, Tenderness, Rebound - Extremities Exam Extremities Exam: Normal Inspection. absent: Calf Tenderness - Neurological Exam Neurological Exam: Alert, Awake, Oriented x3 - Psychiatric Exam Psychiatric exam: Normal Affect, Normal Mood - Skin Skin Exam: Normal Color, Warm Assessment and Plan - Assessment and Plan (Free Text) Assessment: Assessment/Plan: 23 yo female with PMHx of cholelithiasis is admitted for gallstone pancreatitis. Gallstone pancreatitis, cholecystitis -likely 2/2 to choledocolithiais vs biliary sludge -transaminitis likely 2/2 to above -lipase 13019, T. christopher 5.6, AST/ALT 328/506, alk phos 187, LDH 814 on admission. -AST/ALT, T. bili trending down -Ultrasound of gallbladder: IMPRESSION:[id number] amount of non shadowing echogenic material in the gallbladder consistent with tumefactive sludge. No gallbladder wall thickening and/or pericholecystic fluid was noted. Positive sonographic Childs sign elicited by the technologist. This will require further clinical follow-up. Top-normal size common bile duct measuring 7 millimeters. This examination has only now been made available to this radiologist for evaluation. -GI and surgery on board. -Possible ERCP tomorrow by GI -Possible lab belkis tomorrow afte GI recommendation. -NPO -cont IVF NS @250 cc/hr -cont Zosyn -D/c Morphine as pt is exclusively breastfeeds her 3 months old baby ( consult recommeneded) -Pt' is in control (tylenol MD prn for pain). -c/w zofran prn and protonix. -Gudelia's criteria on admission is 2pts. Severe pancreatitis is unlikely, 1% predicted mortality Asymptomatic UTI -UA sig for small leukes -Ucx pending -on abx Dvt Prohyx -Lovenox SC -encourage ambulation <Locke,Mauricio D - Last Filed: 06/07/18 16:38> Objective - Vital Signs/Intake and Output Vital Signs (last 24 hours): Temp Pulse Resp BP Pulse Ox 97.6 F 67 18 126/67 97 06/07/18 16:08 06/07/18 16:08 06/07/18 16:08 06/07/18 16:08 06/07/18 16:08 - Medications Medications: Current Medications Acetaminophen (Tylenol 650 Mg Supp) 650 mg MD Q6 PRN PRN Reason: Pain, moderate (4-7) Enoxaparin Sodium (Lovenox) 40 mg SC DAILY [facility] PRN Reason: Protocol Last Admin: 06/07/18 09:21 Dose: 40 mg Piperacillin Sod/Tazobactam (Sod 3.375 gm/ Sodium Chloride) 100 mls @ 100 mls/ hr IVPB Q6 [facility] PRN Reason: Protocol Last Admin: 06/07/18 09:20 Dose: 100 mls/hr Sodium Chloride (Sodium Chloride 0.9%) 1,000 mls @ 250 mls/hr IV .Q4H [facility] Last Admin: 06/07/18 15:35 Dose: Not Given Ondansetron HCl (Zofran Inj) 4 mg IVP Q6 PRN PRN Reason: Nausea/Vomiting Last Admin: 06/06/18 20:30 Dose: 4 mg Pantoprazole Sodium (Protonix Inj) 40 mg IVP DAILY [facility] Last Admin: 06/07/18 09:20 Dose: 40 mg - Labs Labs: 06/07/18 05:45 06/07/18 05:45 PT 12.5 Seconds (9.8-13.1) 06/06/18 17:15 INR 1.1 06/06/18 17:15 APTT 29.4 Seconds (25.6-37.1) 06/06/18 17:15 Attending/Attestation - Attestation I have personally seen and examined this patient.: Yes I have fully participated in the care of the patient.: Yes I have reviewed all pertinent clinical information, including history, physical exam and plan: Yes
--- NOTE | 2018-06-07 09:07 | US ---
Date of service: 06/06/2018 HISTORY: abd pain h/o gallstones r/o cholecystitis COMPARISON: None. TECHNIQUE: Sonographic evaluation of the right upper quadrant of the abdomen. FINDINGS: LIVER: Normal echogenicity of the liver parenchyma. No mass. No intrahepatic bile duct dilatation. Visualized liver is normal in size. GALLBLADDER: There is evidence of [id number] nonspecific echogenic material within the gallbladder more than likely reflecting tumefactive sludge. No gallbladder wall thickening and/or pericholecystic fluid is noted. However sonographic Childs sign was elicited by the technologist. This will require further clinical correlation and follow-up. COMMON BILE DUCT: Measures 7 mm. No stones. No dilatation. PANCREAS: Unremarkable as visualized. No mass. No ductal dilatation. RIGHT KIDNEY: Measures 11 cm in length. Normal echogenicity. No calculus, mass, or hydronephrosis. AORTA: No aneurysmal dilatation. IVC: Unremarkable. OTHER FINDINGS: None . IMPRESSION: [id number] amount of non shadowing echogenic material in the gallbladder consistent with tumefactive sludge. No gallbladder wall thickening and/or pericholecystic fluid was noted. Positive sonographic Childs sign elicited by the technologist. This will require further clinical follow-up. Top-normal size common bile duct measuring 7 millimeters. This examination has only now been made available to this radiologist for evaluation.
[2018-06-07] MEDS: Enoxaparin 40 mg Syringe SC SCH (09:21)
--- NOTE | 2018-06-07 09:42 | CP.PCM.PN ---
Subjective - Date & Time of Evaluation Date of Evaluation: 06/07/18 Time of Evaluation: 07:25 - Subjective Subjective: General Surgery Pt seen and examined. No acute events overnight. Afebrile, No abd pain today. Feeling much better. Objective - Vital Signs/Intake and Output Vital Signs (last 24 hours): Temp Pulse Resp BP Pulse Ox 98.1 F 76 19 89/51 L 97 06/07/18 07:36 06/07/18 07:36 06/07/18 07:36 06/07/18 07:36 06/07/18 07:36 - Medications Medications: Current Medications Enoxaparin Sodium (Lovenox) 40 mg SC DAILY [facility] PRN Reason: Protocol Last Admin: 06/07/18 09:21 Dose: 40 mg Piperacillin Sod/Tazobactam (Sod 3.375 gm/ Sodium Chloride) 100 mls @ 100 mls/ hr IVPB Q6 [facility] PRN Reason: Protocol Last Admin: 06/07/18 09:20 Dose: 100 mls/hr Sodium Chloride (Sodium Chloride 0.9%) 1,000 mls @ 250 mls/hr IV .Q4H [facility] Last Admin: 06/07/18 09:30 Dose: 250 mls/hr Morphine Sulfate (Morphine) 2 mg IVP Q4 PRN PRN Reason: Pain, moderate (4-7) Last Admin: 06/06/18 20:31 Dose: 2 mg Ondansetron HCl (Zofran Inj) 4 mg IVP Q6 PRN PRN Reason: Nausea/Vomiting Last Admin: 06/06/18 20:30 Dose: 4 mg Pantoprazole Sodium (Protonix Inj) 40 mg IVP DAILY [facility] Last Admin: 06/07/18 09:20 Dose: 40 mg - Labs Labs: 06/07/18 05:45 06/07/18 05:45 PT 12.5 Seconds (9.8-13.1) 06/06/18 17:15 INR 1.1 06/06/18 17:15 APTT 29.4 Seconds (25.6-37.1) 06/06/18 17:15 - Constitutional Appears: Non-toxic, No Acute Distress - Head Exam Head Exam: ATRAUMATIC, NORMOCEPHALIC - Eye Exam Eye Exam: EOMI. absent: Scleral icterus - Respiratory Exam Respiratory Exam: NORMAL BREATHING PATTERN. absent: Respiratory Distress - Cardiovascular Exam Cardiovascular Exam: RRR, +S1, +S2 - GI/Abdominal Exam GI & Abdominal Exam: Soft. absent: Distended, Firm, Guarding, Rigid, Tenderness , Rebound - Extremities Exam Extremities Exam: absent: Pedal Edema - Neurological Exam Neurological Exam: Alert, Awake, Oriented x3 - Skin Skin Exam: Dry, Warm Assessment and Plan - Assessment and Plan (Free Text) Assessment: 23F with pancreatitis likely 2/2 gallstones Plan: F/U GI Recs High rate IVF NPO Serial abdominal exams Planning for Lap Alda. Possibly tomorrow Analgesia PRN Zofran PRN Strict I&Os D/W Dr. Tereso Zendejas PGY4
--- NOTE | 2018-06-07 09:47 | RAD ---
Date of service: 06/06/2018 HISTORY: abd pain pancreatitis COMPARISON: No prior. FINDINGS: LUNGS: No focal infiltrate. PLEURA: No significant pleural effusion identified, no pneumothorax apparent. CARDIOVASCULAR: Normal. OSSEOUS STRUCTURES: No significant abnormalities. VISUALIZED UPPER ABDOMEN: Normal. OTHER FINDINGS: None. IMPRESSION: No active disease.
--- NOTE | 2018-06-07 09:59 | CARD ---
APPROVED REPORT Date of service: 06/06/2018 EKG Measurement Heart [id number] <Conclusion> Normal sinus rhythm Normal ECG
--- NOTE | 2018-06-07 14:39 | CP.PCM.CON ---
History of Present Illness - History of Present Illness History of Present Illness: epigastric pain radiating to back 23 yo female 3 months admitted with sharp epigastric pain radiating to back. Similar episode 2 months ago. Currently feeling much better. Review of Systems - Constitutional Constitutional: absent: Chills - EENT Eyes: absent: Blurred Vision Ears: absent: Decreased Hearing Nose/Mouth/Throat: absent: Epistaxis - Cardiovascular Cardiovascular: absent: Chest Pain - Respiratory Respiratory: absent: Dyspnea - Gastrointestinal Gastrointestinal: As Per HPI - Genitourinary Genitourinary: absent: Change in Urinary Stream Past Patient History - Past Social History Smoking Status: Never Smoked - CARDIAC Hx Cardiac Disorders: No - MUSCULOSKELETAL/RHEUMATOLOGICAL Hx Falls: No - PSYCHIATRIC Hx Depression: No Hx Substance Use: No - SURGICAL HISTORY Hx Surgeries: No - ANESTHESIA Hx Anesthesia: No Hx Anesthesia Reactions: No Hx Malignant Hyperthermia: No Has any member of the family had a problem w/ anesthesia?: No Meds Allergies/Adverse Reactions: Allergies Allergy/AdvReac Type Severity Reaction Status Date / Time No Known Allergies Allergy Verified 06/06/18 16:27 - Medications Medications: Current Medications Acetaminophen (Tylenol 650 Mg Supp) 650 mg [place] Q6 PRN PRN Reason: Pain, moderate (4-7) Enoxaparin Sodium (Lovenox) 40 mg SC DAILY [facility] PRN Reason: Protocol Last Admin: 06/07/18 09:21 Dose: 40 mg Piperacillin Sod/Tazobactam (Sod 3.375 gm/ Sodium Chloride) 100 mls @ 100 mls/ hr IVPB Q6 [facility] PRN Reason: Protocol Last Admin: 06/07/18 09:20 Dose: 100 mls/hr Sodium Chloride (Sodium Chloride 0.9%) 1,000 mls @ 250 mls/hr IV .Q4H [facility] Last Admin: 06/07/18 09:30 Dose: 250 mls/hr Ondansetron HCl (Zofran Inj) 4 mg IVP Q6 PRN PRN Reason: Nausea/Vomiting Last Admin: 06/06/18 20:30 Dose: 4 mg Pantoprazole Sodium (Protonix Inj) 40 mg IVP DAILY [facility] Last Admin: 06/07/18 09:20 Dose: 40 mg Physical Exam - Head Exam Head Exam: ATRAUMATIC - Eye Exam Eye Exam: PERRL - ENT Exam ENT Exam: Normal Exam - Neck Exam Neck exam: Positive for: Normal Inspection - Respiratory Exam Respiratory Exam: NORMAL BREATHING PATTERN - Cardiovascular Exam Cardiovascular Exam: REGULAR RHYTHM, +S1, +S2 - GI/Abdominal Exam GI & Abdominal Exam: Normal Bowel Sounds, Soft. absent: Tenderness - Rectal Exam Rectal Exam: Deferred Results - Vital Signs Recent Vital Signs: Last Vital Signs Temp 98.1 F 06/07/18 07:36 Pulse 76 06/07/18 07:36 Resp 19 06/07/18 07:36 BP 89/51 L 06/07/18 07:36 Pulse Ox 97 06/07/18 07:36 - Labs Result Diagrams: 06/07/18 05:45 06/07/18 05:45 Labs: Laboratory Results - last 24 hr 06/06/18 06/06/18 06/06/18 17:15 17:15 17:15 WBC 9.6 RBC 4.44 Hgb 13.0 D Hct 39.5 MCV 89.0 D MCH 29.2 MCHC 32.8 L RDW 14.8 H Plt Count 188 MPV 9.9 Neut % (Auto) 82.1 H Lymph % (Auto) 9.4 L [place] % (Auto) 7.7 Eos % (Auto) 0.6 Baso % (Auto) 0.2 Neut # (Auto) 7.9 H Lymph # (Auto) 0.9 L [place] # (Auto) 0.7 Eos # (Auto) 0.1 Baso # (Auto) 0.0 Neutrophils % (Manual) 87 H Band Neutrophils % 2 Lymphocytes % (Manual) 7 L Monocytes % (Manual) 4 Platelet Estimate Normal Poikilocytosis (manual Slight Anisocytosis (manual) Slight Tear Drop Cells Slight Ovalocytes Slight PT 12.5 INR 1.1 APTT 29.4 Sodium 138 Potassium 3.7 Chloride 109 H Carbon Dioxide 19 L Anion Gap 14 BUN 10 Creatinine 0.5 L Est GFR ( Amer) > 60 Est GFR (Non-Af Amer) > 60 Random Glucose 94 Lactic Acid Calcium 8.8 Total Bilirubin 5.6 H AST 328 H D ALT 506 H Alkaline Phosphatase 187 H D Lactate Dehydrogenase 814 H Total Protein 7.1 Albumin 3.9 Globulin 3.2 Albumin/Globulin Ratio 1.2 Lipase 43800 H Urine Color Urine Clarity Urine pH Ur Specific [place] Urine Protein Urine Glucose (UA) Urine Ketones Urine Blood Urine Nitrate Urine Bilirubin Urine Urobilinogen Ur Leukocyte Esterase Urine RBC (Auto) Urine Microscopic WBC Ur Squamous Epith Cells Amorphous Sediment Urine Bacteria 06/06/18 06/06/18 06/07/18 17:15 17:40 05:45 WBC 6.7 RBC 3.73 L Hgb 11.2 L Hct 33.2 L MCV 88.9 MCH 30.1 MCHC 33.8 RDW 14.9 H Plt Count 147 MPV 9.9 Neut % (Auto) 69.1 Lymph % (Auto) 18.6 L [place] % (Auto) 9.7 Eos % (Auto) 2.4 Baso % (Auto) 0.2 Neut # (Auto) 4.6 Lymph # (Auto) 1.2 Ness # (Auto) 0.7 Eos # (Auto) 0.2 Baso # (Auto) 0.0 Neutrophils % (Manual) Band Neutrophils % Lymphocytes % (Manual) Monocytes % (Manual) Platelet Estimate Poikilocytosis (manual Anisocytosis (manual) Tear Drop Cells Ovalocytes PT INR APTT Sodium Potassium Chloride Carbon Dioxide Anion Gap BUN Creatinine Est GFR ( Amer) Est GFR (Non-Af Amer) Random Glucose Lactic Acid 0.6 L Calcium Total Bilirubin AST ALT Alkaline Phosphatase Lactate Dehydrogenase Total Protein Albumin Globulin Albumin/Globulin Ratio Lipase Urine Color Noa Urine Clarity Slighty-cloudy Urine pH 6.0 Ur Specific [place] 1.011 Urine Protein Negative Urine Glucose (UA) Neg Urine Ketones Negative Urine Blood Negative Urine Nitrate Negative Urine Bilirubin Negative Urine Urobilinogen 0.2-1.0 Ur Leukocyte Esterase Small Urine RBC (Auto) 1 Urine Microscopic WBC 8 H Ur Squamous Epith Cells < 1 Amorphous Sediment Rare H Urine Bacteria Occ H 06/07/18 05:45 WBC RBC Hgb Hct MCV MCH MCHC RDW Plt Count MPV Neut % (Auto) Lymph % (Auto) Ness % (Auto) Eos % (Auto) Baso % (Auto) Neut # (Auto) Lymph # (Auto) Ness # (Auto) Eos # (Auto) Baso # (Auto) Neutrophils % (Manual) Band Neutrophils % Lymphocytes % (Manual) Monocytes % (Manual) Platelet Estimate Poikilocytosis (manual Anisocytosis (manual) Tear Drop Cells Ovalocytes PT INR APTT Sodium 141 Potassium 3.5 L Chloride 114 H Carbon Dioxide 20 L Anion Gap 11 BUN 7 Creatinine 0.5 L Est GFR ( Amer) > 60 Est GFR (Non-Af Amer) > 60 Random Glucose 72 Lactic Acid Calcium 8.0 L Total Bilirubin 4.7 H AST 156 H D ALT 312 H D Alkaline Phosphatase 138 H D Lactate Dehydrogenase Total Protein 5.4 L Albumin 2.9 L D Globulin 2.6 Albumin/Globulin Ratio 1.1 Lipase Urine Color Urine Clarity Urine pH Ur Specific [place] Urine Protein Urine Glucose (UA) Urine Ketones Urine Blood Urine Nitrate Urine Bilirubin Urine Urobilinogen Ur Leukocyte Esterase Urine RBC (Auto) Urine Microscopic WBC Ur Squamous Epith Cells Amorphous Sediment Urine Bacteria Assessment & Plan (1) Gallstone pancreatitis Assessment and Plan: Patient currently without pain. Sludge seen in gallbladder. Bili still elevated. MRCP ordered to r/o small stone or sludge in CBD. Status: Acute
[2018-06-07] MEDS ORDERED: Potassium Chloride 20 mEq/15 ml LIQ UD PO ONE (16:30)
[2018-06-08] MEDS: Sodium Chloride 0.9% 1,000 ML IV SCH ×6 (00:36→17:21)
[2018-06-08] MEDS: Piperacillin/Tazobact 3.375 GM in Sodium Chloride 0.9% 100 ML IVPB SCH ×3 (03:06→17:25)
[2018-06-08 07:13] LABS: HEMOGLOBIN 11.4 g/dL (12.0-16.0); MEAN CELL VOLUME 90.1 fl (81.0-99.0); MEAN CORPUSCULAR HEMOGLOBIN 29.7 pg (27.0-31.0); RBC 3.83 Mil/uL (3.80-5.20); RED CELL DISTRIBUTION WIDTH 14.8 % (11.5-14.5); WHITE BLOOD COUNT 7.3 K/uL (4.8-10.8)
[2018-06-08] MEDS ORDERED: ePHEDrine 50 mg/ml Inj ONE (07:28)
[2018-06-08] MEDS ORDERED: Midazolam 2 MG/2 ML VIAL ONE (07:28)
[2018-06-08] MEDS ORDERED: Propofol 10 mg/ml Inj (20 ML) ONE (07:28)
[2018-06-08] MEDS ORDERED: Succinylcholine 200 mg/10 ml Inj IV ONE (07:29)
[2018-06-08] MEDS ORDERED: Lidocaine 4% (Laryng-O-Jet) Kit MM ONE (07:29)
[2018-06-08] MEDS ORDERED: Rocuronium 10 mg/ml (5 ml) ONE (07:29)
[2018-06-08 07:31] LABS: ALB/GLOB RATIO 1.2 (1.0-2.1); ALBUMIN 3.6 g/dL (3.5-5.0); ALT/SGPT 273 U/L (9-52); AST/SGOT 90 U/L (14-36); BLOOD UREA NITROGEN 5 mg/dl (7-17); CALCIUM 8.7 mg/dL (8.4-10.2); GFR NON-AFRICAN AMERICAN > 60
[2018-06-08 07:46] LABS: LIPASE 2043 U/L (23-300)
[2018-06-08] MEDS ORDERED: Lactated Ringer's 1,000 ML IV ONE (08:00)
[2018-06-08] MEDS ORDERED: Dexamethasone 4 mg/1 ml ONE (08:25)
[2018-06-08] MEDS ORDERED: Neostigmine 1:1000 (1 mg/ml) Inj ONE (08:26)
[2018-06-08] MEDS ORDERED: Sodium Chloride 0.9% 1,000 ML IV ONE (09:00)
[2018-06-08] MEDS ORDERED: DiphenhydrAMINE 50 mg/ml Inj IVP PRN (09:14)
[2018-06-08] MEDS ORDERED: Sodium Chloride 0.9% 1,000 ML IV SCH (09:15)
--- NOTE | 2018-06-08 09:18 | PCM.SURG1 ---
Surgeon's Initial Post Op Note - Surgeon's Notes Surgeon: Tereso [employer] Technician: PGY4 Type of Anesthesia: General Endo Pre-Operative Diagnosis: Gallstone pancreatitis, cholelithiasis Operative Findings: see op note Post-Operative Diagnosis: Gallstone pancreatitis, cholelithiasis Operation Performed: Laparoscopic cholecystectomy Specimen/Specimens Removed: gallbladder Estimated Blood Loss: EBL {In ML}: 5 Blood Products Given: N/A Drains Used: No Drains Post-Op Condition: Good Date of Surgery/Procedure: 06/08/18 Time of Surgery/Procedure: 08:00
[2018-06-08] MEDS: HYDROmorphone 0.5 mg/0.5 ml ISec IVP PRN ×2 (09:29→09:40)
[2018-06-08] MEDS: Enoxaparin 40 mg Syringe SC SCH (10:10)
--- NOTE | 2018-06-08 10:59 | CP.PCM.PN ---
<Sultan Mike - Last Filed: 06/08/18 11:21> Subjective - Date & Time of Evaluation Date of Evaluation: 06/08/18 Time of Evaluation: 11:10 - Subjective Subjective: Patient seen and examined after lap belkis this morning. Pt is lying in bed, breathing comfortably, not in acute distress. Reports pain is controlled. Denies chest pain, dyspnea, nausea, vomiting or dizziness. Objective - Vital Signs/Intake and Output Vital Signs (last 24 hours): Temp Pulse Resp BP Pulse Ox 97.5 F L 72 20 113/65 97 06/08/18 10:20 06/08/18 10:20 06/08/18 10:20 06/08/18 10:20 06/08/18 10:20 Intake and Output: 06/08/18 06/08/18 06:59 18:59 Intake Total 1100 Output Total 25 Balance 1075 - Medications Medications: Current Medications Acetaminophen (Tylenol 650 Mg Supp) 650 mg MO Q6 PRN PRN Reason: Pain, moderate (4-7) Diphenhydramine HCl (Benadryl) 25 mg IVP Q6 PRN PRN Reason: Itching / Pruritus Stop: 06/08/18 11:15 Enoxaparin Sodium (Lovenox) 40 mg SC DAILY [facility] PRN Reason: Protocol Last Admin: 06/08/18 10:10 Dose: Not Given Hydromorphone HCl (Dilaudid) 0.5 mg IVP Q5M PRN PRN Reason: Pain, moderate (4-7) Stop: 06/08/18 11:15 Last Admin: 06/08/18 09:40 Dose: 0.5 mg Piperacillin Sod/Tazobactam (Sod 3.375 gm/ Sodium Chloride) 100 mls @ 100 mls/ hr IVPB Q6 [facility] PRN Reason: Protocol Last Admin: 06/08/18 10:12 Dose: Not Given Sodium Chloride (Sodium Chloride 0.9%) 1,000 mls @ 250 mls/hr IV .Q4H [facility] Last Admin: 06/08/18 10:11 Dose: Not Given Sodium Chloride (Sodium Chloride 0.9%) 1,000 mls @ 100 mls/hr IV .Q10H [facility] Last Admin: 06/08/18 10:11 Dose: Not Given Ondansetron HCl (Zofran Inj) 4 mg IVP Q6 PRN PRN Reason: Nausea/Vomiting Last Admin: 06/06/18 20:30 Dose: 4 mg Pantoprazole Sodium (Protonix Inj) 40 mg IVP DAILY [facility] Last Admin: 06/08/18 10:11 Dose: Not Given - Labs Labs: 06/08/18 06:30 06/08/18 06:30 PT 12.5 Seconds (9.8-13.1) 06/06/18 17:15 INR 1.1 06/06/18 17:15 APTT 29.4 Seconds (25.6-37.1) 06/06/18 17:15 - Additional Findings Additional findings: - Constitutional Appears: Non-toxic, No Acute Distress - Head Exam Head Exam: NORMAL INSPECTION, NORMOCEPHALIC - Eye Exam Eye Exam: Normal appearance - ENT Exam ENT Exam: Mucous Membranes Moist - Respiratory Exam Respiratory Exam: Clear to Ausculation Bilateral, NORMAL BREATHING PATTERN. absent: Rhonchi, Wheezes - Cardiovascular Exam Cardiovascular Exam: REGULAR RHYTHM, RRR, +S1, +S2 - GI/Abdominal Exam GI & Abdominal Exam: Soft, Normal Bowel Sounds, appropriately tender. absent: Guarding, Rigid, Rebound - Extremities Exam Extremities Exam: Normal Inspection. absent: Calf Tenderness - Neurological Exam Neurological Exam: Alert, Awake, Oriented x3 - Psychiatric Exam Psychiatric exam: Normal Affect, Normal Mood - Skin Skin Exam: Normal Color, Warm Assessment and Plan - Assessment and Plan (Free Text) Assessment: Assessment/Plan: 23 yo female with PMHx of cholelithiasis is admitted for gallstone pancreatitis , s/p lap belkis this morning. Gallstone pancreatitis, cholecystitis s/p lap belkis -likely 2/2 to choledocolithiais vs biliary sludge -transaminitis likely 2/2 to above -lipase 00946, T. christopher 5.6, AST/ALT 328/506, alk phos 187, LDH 814 on admission. -AST/ALT, T. bili trending down -Ultrasound of gallbladder: IMPRESSION:[id number] amount of non shadowing echogenic material in the gallbladder consistent with tumefactive sludge. No gallbladder wall thickening and/or pericholecystic fluid was noted. Positive sonographic Childs sign elicited by the technologist. This will require further clinical follow-up. Top-normal size common bile duct measuring 7 millimeters. -GI and surgery on board. -MRCP:IMPRESSION: Gallstones with cholecystitis. No evidence of ductal stone or ductal dilatation. Moderate amount of nonspecific fluid in the abdomen and pelvis. -cont IVF NS @250 cc/hr -cont Zosyn -D/c Morphine as pt is exclusively breastfeeds her 3 months old baby ( consult recommeneded) -pain control: tylenol and ibuprofen prn -advance diet as tolerated. Asymptomatic UTI -UA sig for small leukes -Ucx shows gram positive cocci. <10,000 cfu/ml -on abx Dvt Prohyx -Lovenox SC -encourage ambulation <Jacey Carr - Last Filed: 06/08/18 16:23> Objective - Vital Signs/Intake and Output Vital Signs (last 24 hours): Temp Pulse Resp BP Pulse Ox 97.9 F 76 17 104/62 97 06/08/18 11:40 06/08/18 11:40 06/08/18 11:40 06/08/18 11:40 06/08/18 10:20 Intake and Output: 06/08/18 06/08/18 06:59 18:59 Intake Total 1100 Output Total 25 Balance 1075 - Medications Medications: Current Medications Acetaminophen (Tylenol 325mg Tab) 975 mg PO Q8 [facility] Last Admin: 06/08/18 13:23 Dose: 975 mg Enoxaparin Sodium (Lovenox) 40 mg SC DAILY [facility] PRN Reason: Protocol Last Admin: 06/08/18 10:10 Dose: Not Given Piperacillin Sod/Tazobactam (Sod 3.375 gm/ Sodium Chloride) 100 mls @ 100 mls/ hr IVPB Q6 [facility] PRN Reason: Protocol Last Admin: 06/08/18 10:12 Dose: Not Given Sodium Chloride (Sodium Chloride 0.9%) 1,000 mls @ 250 mls/hr IV .Q4H [facility] Last Admin: 06/08/18 13:19 Dose: Not Given Sodium Chloride (Sodium Chloride 0.9%) 1,000 mls @ 100 mls/hr IV .Q10H [facility] Last Admin: 06/08/18 10:11 Dose: Not Given Ibuprofen (Motrin Tab) 600 mg PO Q8 PRN PRN Reason: Pain, moderate (4-7) Ondansetron HCl (Zofran Inj) 4 mg IVP Q6 PRN PRN Reason: Nausea/Vomiting Last Admin: 06/06/18 20:30 Dose: 4 mg Pantoprazole Sodium (Protonix Inj) 40 mg IVP DAILY [facility] Last Admin: 06/08/18 10:11 Dose: Not Given - Labs Labs: 06/08/18 06:30 06/08/18 06:30 PT 12.5 Seconds (9.8-13.1) 06/06/18 17:15 INR 1.1 06/06/18 17:15 APTT 29.4 Seconds (25.6-37.1) 06/06/18 17:15 Attending/Attestation - Attestation I have personally seen and examined this patient.: Yes I have fully participated in the care of the patient.: Yes I have reviewed all pertinent clinical information, including history, physical exam and plan: Yes Notes (Text): 06/08/18 16:23 Seen, examined, discussed with resident Dr. Mckeon. Agree with findings and plan as above.
--- NOTE | 2018-06-08 14:28 | MRI ---
Date of service: 06/07/18 MRCP Indication: Elevated bilirubin Technique: Multiplanar, multisequence MR images of the abdomen were obtained, including heavily T2 weighted MRCP images of the biliary system. Rotating maximum intensity projection images of the biliary system were generated. A total of 584 images were submitted for review. Comparison: Gallbladder ultrasound performed 06/06/18 Findings: Small bilateral pleural effusions, left greater than right and associated compressive consolidations. The liver appears grossly unremarkable on this noncontrast examination. Mild to moderate abdominal ascites. Limited visualization of the pelvis also demonstrates ascites. Cholelithiasis. Mild gallbladder wall thickening. There is no intrahepatic biliary ductal dilatation. Visualized portion of the common bile duct appear within normal limits of caliber without filling defect evident. The pancreatic duct appears within normal limits of caliber. No filling defects are seen in the common bile duct or pancreatic duct. The adrenal glands, kidneys, spleen, and pancreas appear unremarkable. No bulky abdominal lymphadenopathy is seen. No acute osseous abnormality is detected. Impression: Cholelithiasis. Mild gallbladder wall thickening. Correlate clinically for cholecystitis. [id number] abdominal and pelvic ascites. Small bilateral pleural effusions, left greater than right and associated compressive consolidations. Preliminary impression was provided by virtual radiologic.
[2018-06-08 16:29] VITALS: BP 94/57; PULSE 67; RESP 18; TEMP 98; O2SAT 95
--- NOTE | 2018-06-08 18:48 | CP.PCM.DIS ---
<Peace Hardy - Last Filed: 06/08/18 19:12> Provider - Provider Date of Admission: 06/06/18 19:16 Attending physician: Mauricio Locke MD Primary care physician: Dr. Rider-surgery; Dr. Green-GI Time Spent in preparation of Discharge (in minutes): 35 Diagnosis - Discharge Diagnosis (1) Gallstone pancreatitis Status: Resolved Priority: Low (2) S/P laparoscopic cholecystectomy Status: Acute Priority: Low Hospital Course - Lab Results Lab Results: Micro Results 06/06/18 17:40 Urine Urine Culture - Final Gram Positive Cocci Most Recent Lab Values WBC 7.3 K/uL (4.8-10.8) 06/08/18 06:30 RBC 3.83 Mil/uL (3.80-5.20) 06/08/18 06:30 Hgb 11.4 g/dL (12.0-16.0) L 06/08/18 06:30 Hct 34.5 % (34.0-47.0) 06/08/18 06:30 MCV 90.1 fl (81.0-99.0) 06/08/18 06:30 MCH 29.7 pg (27.0-31.0) 06/08/18 06:30 MCHC 33.0 g/dL (33.0-37.0) 06/08/18 06:30 RDW 14.8 % (11.5-14.5) H 06/08/18 06:30 Plt Count 172 K/uL (130-400) 06/08/18 06:30 MPV 9.9 fl (7.2-11.7) 06/07/18 05:45 Neut % (Auto) 69.1 % (50.0-75.0) 06/07/18 05:45 Lymph % (Auto) 18.6 % (20.0-40.0) L 06/07/18 05:45 [place] % (Auto) 9.7 % (0.0-10.0) 06/07/18 05:45 Eos % (Auto) 2.4 % (0.0-4.0) 06/07/18 05:45 Baso % (Auto) 0.2 % (0.0-2.0) 06/07/18 05:45 Neut # (Auto) 4.6 K/uL (1.8-7.0) 06/07/18 05:45 Lymph # (Auto) 1.2 K/uL (1.0-4.3) 06/07/18 05:45 [place] # (Auto) 0.7 K/uL (0.0-0.8) 06/07/18 05:45 Eos # (Auto) 0.2 K/uL (0.0-0.7) 06/07/18 05:45 Baso # (Auto) 0.0 K/uL (0.0-0.2) 06/07/18 05:45 Neutrophils % (Manual) 87 % (42-75) H 06/06/18 17:15 Band Neutrophils % 2 % (0-2) 06/06/18 17:15 Lymphocytes % (Manual) 7 % (20-50) L 06/06/18 17:15 Monocytes % (Manual) 4 % (0-10) 06/06/18 17:15 Platelet Estimate Normal (NORMAL) 06/06/18 17:15 Poikilocytosis (manual Slight 06/06/18 17:15 Anisocytosis (manual) Slight 06/06/18 17:15 Tear Drop Cells Slight 06/06/18 17:15 Ovalocytes Slight 06/06/18 17:15 PT 12.5 Seconds (9.8-13.1) 06/06/18 17:15 INR 1.1 06/06/18 17:15 APTT 29.4 Seconds (25.6-37.1) 06/06/18 17:15 Sodium 140 mmol/l (132-148) 06/08/18 06:30 Potassium 3.7 MMOL/L (3.6-5.0) 06/08/18 06:30 Chloride 111 mmol/L (98-107) H 06/08/18 06:30 Carbon Dioxide 19 mmol/L (22-30) L 06/08/18 06:30 Anion Gap 14 (10-20) 06/08/18 06:30 BUN 5 mg/dl (7-17) L 06/08/18 06:30 Creatinine 0.5 mg/dl (0.7-1.2) L 06/08/18 06:30 Est GFR ( Amer) > 60 06/08/18 06:30 Est GFR (Non-Af Amer) > 60 06/08/18 06:30 Random Glucose 72 mg/dL (65-105) 06/08/18 06:30 Lactic Acid 0.6 MMOL/L (0.7-2.1) L 06/06/18 17:15 Calcium 8.7 mg/dL (8.4-10.2) 06/08/18 06:30 Total Bilirubin 1.6 mg/dl (0.2-1.3) H 06/08/18 06:30 AST 90 U/L (14-36) H D 06/08/18 06:30 ALT 273 U/L (9-52) H 06/08/18 06:30 Alkaline Phosphatase 155 U/L (38-126) H 06/08/18 06:30 Lactate Dehydrogenase 814 U/L (313-618) H 06/06/18 17:15 Total Protein 6.6 G/DL (6.3-8.2) 06/08/18 06:30 Albumin 3.6 g/dL (3.5-5.0) 06/08/18 06:30 Globulin 3.0 gm/dL (2.2-3.9) 06/08/18 06:30 Albumin/Globulin Ratio 1.2 (1.0-2.1) 06/08/18 06:30 Lipase 2043 U/L (23-300) H 06/08/18 06:30 Urine Color Noa (YELLOW) 06/06/18 17:40 Urine Clarity Slighty-cloudy (Clear) 06/06/18 17:40 Urine pH 6.0 (5.0-8.0) 06/06/18 17:40 Ur Specific [place] 1.011 (1.003-1.030) 06/06/18 17:40 Urine Protein Negative mg/dL (NEGATIVE) 06/06/18 17:40 Urine Glucose (UA) Neg mg/dL (Normal) 06/06/18 17:40 Urine Ketones Negative mg/dL (NEGATIVE) 06/06/18 17:40 Urine Blood Negative (NEGATIVE) 06/06/18 17:40 Urine Nitrate Negative (NEGATIVE) 06/06/18 17:40 Urine Bilirubin Negative (NEGATIVE) 06/06/18 17:40 Urine Urobilinogen 0.2-1.0 mg/dL (0.2-1.0) 06/06/18 17:40 Ur Leukocyte Esterase Small Maggie/uL (Negative) 06/06/18 17:40 Urine RBC (Auto) 1 /hpf (0-3) 06/06/18 17:40 Urine Microscopic WBC 8 /hpf (0-5) H 06/06/18 17:40 Ur Squamous Epith Cells < 1 /hpf (0-5) 06/06/18 17:40 Amorphous Sediment Rare /ul (<OCC) H 06/06/18 17:40 Urine Bacteria Occ (<OCC) H 06/06/18 17:40 - Hospital Course Hospital Course: 23 yr old F admitted for gallstone pancreatitis. During admission MRP showed gallstones with cholecystitis. Patient was evaluated by GI and surgery. Patient is POD # 0 s/p laparoscopic cholecystectomy, has remained afebrile, pain is controlled and patient is tolerating PO diet, has normal urine output. Patient is stable for discharge with instructions to follow up with PMD at [facility] on 06/11/18 , follow up with surgery Dr. Rider within 1 week, consume a low fat diet, avoid spicy/highly condimented/greasy foods; take ibuprofen with food PRN for pain. ER precautions were reviewed including (fever 100.4 F or above, chills, yellowing of eyes or skin, increasing abdominal pain, leg swelling or shortness of breath). - Date & Time of H&P Date of H&P: 06/06/18 Time of H&P: 19:25 Discharge Exam - Head Exam Head Exam: ATRAUMATIC, NORMOCEPHALIC - Eye Exam Eye Exam: EOMI, PERRL - ENT Exam ENT Exam: Mucous Membranes Moist - Neck Exam Neck exam: Full Rom, Lymphadenopathy - Respiratory Exam Respiratory Exam: Clear to PA & Lateral, NORMAL BREATHING PATTERN - Cardiovascular Exam Cardiovascular Exam: REGULAR RHYTHM, +S1, +S2 - GI/Abdominal Exam GI & Abdominal Exam: Normal Bowel Sounds, Soft, Tenderness (minimal in laparoscopic incision areas) - Extremities Exam Extremities exam: full ROM - Neurological Exam Neurological exam: Alert, CN II-XII Intact, Oriented x3 - Psychiatric Exam Psychiatric exam: Normal Affect, Normal Mood - Skin Skin Exam: Dry, Normal Color, Warm Discharge Plan - Follow Up Plan Condition: FAIR Disposition: HOME/ ROUTINE Patient education suggested?: Yes Instructions: Cholecystectomy (DC), Cholecystectomy, Laparoscopic Surgery Additional Instructions: -Follow up with PMD at [facility] on 06/11/18 -Follow up with surgery Dr. Rider within 1 week (call [phone] for appt) -Consume a low fat diet, avoid spicy/highly condimented/greasy foods -Take ibuprofen 600mg PO Q6 with food PRN for pain -ER precautions were reviewed including (fever 100.4 F or above, chills, yellowing of eyes or skin, increasing abdominal pain, leg swelling or shortness of breath Referrals: [facility] [Provider Group] Paloma Rider MD [Staff Provider] - <Jacey Carr - Last Filed: 06/09/18 18:02> Provider - Provider Date of Admission: 06/06/18 19:16 Attending physician: Mauricio Locke MD Hospital Course - Lab Results Lab Results: Micro Results 06/06/18 17:40 Urine Urine Culture - Final Gram Positive Cocci Most Recent Lab Values WBC 7.3 K/uL (4.8-10.8) 06/08/18 06:30 RBC 3.83 Mil/uL (3.80-5.20) 06/08/18 06:30 Hgb 11.4 g/dL (12.0-16.0) L 06/08/18 06:30 Hct 34.5 % (34.0-47.0) 06/08/18 06:30 MCV 90.1 fl (81.0-99.0) 06/08/18 06:30 MCH 29.7 pg (27.0-31.0) 06/08/18 06:30 MCHC 33.0 g/dL (33.0-37.0) 06/08/18 06:30 RDW 14.8 % (11.5-14.5) H 06/08/18 06:30 Plt Count 172 K/uL (130-400) 06/08/18 06:30 MPV 9.9 fl (7.2-11.7) 06/07/18 05:45 Neut % (Auto) 69.1 % (50.0-75.0) 06/07/18 05:45 Lymph % (Auto) 18.6 % (20.0-40.0) L 06/07/18 05:45 [place] % (Auto) 9.7 % (0.0-10.0) 06/07/18 05:45 Eos % (Auto) 2.4 % (0.0-4.0) 06/07/18 05:45 Baso % (Auto) 0.2 % (0.0-2.0) 06/07/18 05:45 Neut # (Auto) 4.6 K/uL (1.8-7.0) 06/07/18 05:45 Lymph # (Auto) 1.2 K/uL (1.0-4.3) 06/07/18 05:45 [place] # (Auto) 0.7 K/uL (0.0-0.8) 06/07/18 05:45 Eos # (Auto) 0.2 K/uL (0.0-0.7) 06/07/18 05:45 Baso # (Auto) 0.0 K/uL (0.0-0.2) 06/07/18 05:45 Neutrophils % (Manual) 87 % (42-75) H 06/06/18 17:15 Band Neutrophils % 2 % (0-2) 06/06/18 17:15 Lymphocytes % (Manual) 7 % (20-50) L 06/06/18 17:15 Monocytes % (Manual) 4 % (0-10) 06/06/18 17:15 Platelet Estimate Normal (NORMAL) 06/06/18 17:15 Poikilocytosis (manual Slight 06/06/18 17:15 Anisocytosis (manual) Slight 06/06/18 17:15 Tear Drop Cells Slight 06/06/18 17:15 Ovalocytes Slight 06/06/18 17:15 PT 12.5 Seconds (9.8-13.1) 06/06/18 17:15 INR 1.1 06/06/18 17:15 APTT 29.4 Seconds (25.6-37.1) 06/06/18 17:15 Sodium 140 mmol/l (132-148) 06/08/18 06:30 Potassium 3.7 MMOL/L (3.6-5.0) 06/08/18 06:30 Chloride 111 mmol/L (98-107) H 06/08/18 06:30 Carbon Dioxide 19 mmol/L (22-30) L 06/08/18 06:30 Anion Gap 14 (10-20) 06/08/18 06:30 BUN 5 mg/dl (7-17) L 06/08/18 06:30 Creatinine 0.5 mg/dl (0.7-1.2) L 06/08/18 06:30 Est GFR ( Amer) > 60 06/08/18 06:30 Est GFR (Non-Af Amer) > 60 06/08/18 06:30 Random Glucose 72 mg/dL (65-105) 06/08/18 06:30 Lactic Acid 0.6 MMOL/L (0.7-2.1) L 06/06/18 17:15 Calcium 8.7 mg/dL (8.4-10.2) 06/08/18 06:30 Total Bilirubin 1.6 mg/dl (0.2-1.3) H 06/08/18 06:30 AST 90 U/L (14-36) H D 06/08/18 06:30 ALT 273 U/L (9-52) H 06/08/18 06:30 Alkaline Phosphatase 155 U/L (38-126) H 06/08/18 06:30 Lactate Dehydrogenase 814 U/L (313-618) H 06/06/18 17:15 Total Protein 6.6 G/DL (6.3-8.2) 06/08/18 06:30 Albumin 3.6 g/dL (3.5-5.0) 06/08/18 06:30 Globulin 3.0 gm/dL (2.2-3.9) 06/08/18 06:30 Albumin/Globulin Ratio 1.2 (1.0-2.1) 06/08/18 06:30 Lipase 2043 U/L (23-300) H 06/08/18 06:30 Urine Color Noa (YELLOW) 06/06/18 17:40 Urine Clarity Slighty-cloudy (Clear) 06/06/18 17:40 Urine pH 6.0 (5.0-8.0) 06/06/18 17:40 Ur Specific [place] 1.011 (1.003-1.030) 06/06/18 17:40 Urine Protein Negative mg/dL (NEGATIVE) 06/06/18 17:40 Urine Glucose (UA) Neg mg/dL (Normal) 06/06/18 17:40 Urine Ketones Negative mg/dL (NEGATIVE) 06/06/18 17:40 Urine Blood Negative (NEGATIVE) 06/06/18 17:40 Urine Nitrate Negative (NEGATIVE) 06/06/18 17:40 Urine Bilirubin Negative (NEGATIVE) 06/06/18 17:40 Urine Urobilinogen 0.2-1.0 mg/dL (0.2-1.0) 06/06/18 17:40 Ur Leukocyte Esterase Small Maggie/uL (Negative) 06/06/18 17:40 Urine RBC (Auto) 1 /hpf (0-3) 06/06/18 17:40 Urine Microscopic WBC 8 /hpf (0-5) H 06/06/18 17:40 Ur Squamous Epith Cells < 1 /hpf (0-5) 06/06/18 17:40 Amorphous Sediment Rare /ul (<OCC) H 06/06/18 17:40 Urine Bacteria Occ (<OCC) H 06/06/18 17:40 Attending/Attestation - Attestation I have personally seen and examined this patient.: Yes I have fully participated in the care of the patient.: Yes I have reviewed all pertinent clinical information, including history, physical exam and plan: Yes Notes (Text): 06/09/18 18:02 Seen, examined, and discussed with resident. Agree with findings and plan as above.
--- NOTE | 2018-06-09 05:31 | OP ---
Copied To: Alfonso Zendejas DO Attending MD: Alfonso Zendejas DO PROCEDURE DATE: 06/08/2018 SURGEON: Paloma Rider MD. SUSTAINABLE DESIGN COORDINATOR: Alfonso Zendejas, PGY-4. PREOPERATIVE DIAGNOSES: Gallstone pancreatitis, and cholelithiasis. POSTOPERATIVE DIAGNOSES: Gallstone pancreatitis, and cholelithiasis. PROCEDURE PERFORMED: Laparoscopic cholecystectomy. ANESTHESIA: General endotracheal. SPECIMEN: Gallbladder. BLOOD LOSS: 10 mL. DRAINS: None. COMPLICATIONS: None. DESCRIPTION OF PROCEDURE: The patient was brought to the operating room and placed in the supine position. She was administered general endotracheal anesthesia. The abdomen was then prepped and draped in the normal sterile fashion with a #11 blade scalpel. A transverse infraumbilical incision was created. Veress needle was then introduced into the abdomen with anterior traction on the abdominal wall. This was done without difficulty. The abdomen was then insufflated with carbon dioxide to 15 mmHg. Once the abdomen was sufficiently insufflated, an 11-mm bladed trocar was inserted into the abdomen. The laparoscope was then inserted and the abdomen was examined. On examination, the abdomen was noted to have reddish brown ascites fluid surrounding the liver and down into the pelvis. The patient was then placed in reverse Trendelenburg and with the body tilted towards the left side. Next, a #11 blade scalpel was used to place a subxiphoid port under direct vision and seemed to go the right of the falciform ligament and then two 5 mm trocars were inserted under direct visualization, one in the mid clavicular subcostal region and one in the anterior mid axillary line. The liver edge was lifted and revealed a nondistended gallbladder with minor inflammation. Gallbladder was then reflected in a cephalad direction. The ampulla was grasped with a second grasper opening the triangle of Calot. The cystic duct was dissected out and exposed at its junction with the ampulla. The cystic artery was then identified and dissected out as well. Then an endoscopic clip was placed on the cystic duct with two clips, proximal to the common bile duct and one proximal to the gallbladder and divided. The cystic artery was similarly controlled and divided. At that time, a posterior branch of the cystic artery was found, and was also clipped and divided with the Endoshears. The gallbladder was dissected from its bed, from the liver. The liver was then inspected for any bleeding and it appeared that hemostasis was achieved. Gallbladder was then placed in an Endobag and removed through the umbilical incision. The subhepatic and subphrenic spaces were irrigated and drained and then the inferior portion of the liver was reinspected and no bleeding was noted. CO2 was evacuated from the abdominal cavity and the can was removed. The umbilical fascia was closed with 0 Vicryl and the skin was closed with 4-0 Monocryl. The skin edges were then sealed together with Dermabond and sterile dressings were applied once dry. At the end of the case, the sponge and needle counts were correct and the patient was extubated and was taken to the PACU in stable condition. Alfonso Zendejas DO Paloma Rider MD
== END 2018-06-08 20:55 | disposition home or self-care (01) | DRG 417 ==
LOC: H.ER 16:09 → H.ERHOLD 19:16 → H.MEDSURG1 22:28
PROC: 0FT44ZZ Resection of Gallbladder, Percutaneous Endoscopic Approach (ICD-10-PCS; principal; 2018-06-08 07:45)
DX: K80.10 Calculus of gallbladder with chronic cholecystitis without obstruction (principal); K85.10 Biliary acute pancreatitis without necrosis or infection; N39.0 Urinary tract infection, site not specified